=== PATIENT | female | born 1990 | race Caucasian/White ===

== ENCOUNTER 2019-06-16 19:20 | Emergency (ER) | payer OTHER ==
[~2019-06-16] VITALS: Ht 167.6 cm; Wt 86.2 kg
[2019-06-16 19:32] VITALS: BP_SYST 157
--- NOTE | 2019-06-16 19:32 | NUR ---
Placed in room 3 . Placed on eye care professional, blood pressure machine and pulse oximeter. To gown for exam. Side rails up. Report given to KERLINE AKHTAR/ ISMAEL AKHTAR.
[2019-06-16] MEDS ORDERED: NACL 0.9% 1,000 ML IV ONE (20:30)
--- NOTE | 2019-06-16 20:41 | NUR ---
ER at bedside examining patient.
--- NOTE | 2019-06-16 20:41 | NUR ---
Patient A&O x4 and ambulated to ER bed 3. Patient complains of heart palpitations and chest pain that started "around 1230 today". Patient has prescribed hydroxyzine for anxiety. Patient stated she took hydroxyzine today when her heart palpitations started but it was not effective. Patient states she went to an employee wellness exam this morning at 9am and she "had high blood pressure and a fast heart rate". After the wellness exam, she went to work and began to feel light headed. Patient states she has had chest pain on and off for about two months. Patient denies nausea and vomiting. Will continue to monitor.
--- NOTE | 2019-06-16 20:42 | NUR ---
Lab at bedside drawing blood. Patient tolerated well.
[2019-06-16 20:59] LABS: BASOPHILS # (AUTO) 0.1 K/uL (0.0-0.2); BASOPHILS % (AUTO) 0.8 % (0.0-2.0); EOSINOPHILS # (AUTO) 0.1 K/uL (0.0-0.4); EOSINOPHILS % (AUTO) 1.4 % (0.0-4.0); HEMATOCRIT 44.3 % (36-48); LYMPHOCYTES # (AUTO) 2.8 K/uL (1.0-5.5); LYMPHOCYTES % (AUTO) 26.1 % (20.5-51.5); MEAN CORPUSCULAR HEMOGLOBIN 29 pg (27-31); MEAN CORPUSCULAR HGB CONC 34 % (32-36); MEAN CORPUSCULAR VOLUME 85 fL (79.0-98.0); MONOCYTES # (AUTO) 0.8 K/uL (0.0-1.0); MONOCYTES % (AUTO) 7.6 % (1.7-9.3); NEUTROPHILS # (AUTO) 6.8 K/uL (1.8-7.7); NEUTROPHILS % (AUTO) 64.1 % (40.0-70.0); PLATELET COUNT (AUTO) 420 K/uL (130-430); RED BLOOD CELL COUNT(AUTO) 5.19 MIL/uL (4.2-6.2); RED CELL DISTRIBUTION WIDTH 12.8 % (9.0-15.0); WHITE BLOOD COUNT (AUTO) 10.6 K/uL (4.8-10.8)
--- NOTE | 2019-06-16 21:10 | NUR ---
# 20 gauge angiocath placed to RAC. Use of asceptic technique. Opsite placed over site. Blood return noted. Flushed with 10 cc of normal saline. No evidence of infiltration noted. Patient tolerated well.
[2019-06-16 21:14] LABS: ANION GAP 9 (5-15); CALCIUM 9.8 mg/dL (8.4-11.0); CHLORIDE 102 mmol/L (98-107); CREATININE 0.87 mg/dL (0.55-1.30); GLUCOSE 115 mg/dL (70-99); POTASSIUM 3.9 mmol/L (3.5-5.1); SODIUM SERUM 138 mmol/L (136-145); UREA NITROGEN, BLOOD 13 mg/dL (8-21)
[2019-06-16 21:22] LABS: ALANINE AMINOTRANSFERASE 38 U/L (12-78); ASPARTATE AMINOTRANSFERASE 21 U/L (10-37); TOTAL BILIRUBIN 0.4 mg/dL (0.0-1.0)
[2019-06-16 21:26] LABS: GFR AFRICAN AMERICAN 99 mL/min (>90)
[2019-06-16 23:24] VITALS: BP_SYST 133
--- NOTE | 2019-06-16 23:24 | NUR ---
Patient given written and verbal discharge instructions and verbalizes understanding. ER MD discussed with patient the results and treatment provided. Patient in stable condition. ID arm band removed. IV catheter removed intact and dressing applied, no active bleeding. Opportunity for questions provided and answered.
== END 2019-06-16 23:24 | disposition home or self-care (01) ==
LOC: SED 19:20
DX: F41.0 Panic disorder [episodic paroxysmal anxiety] (principal); R07.89 Other chest pain; R42 Dizziness and giddiness; I10 Essential (primary) hypertension; F41.9 Anxiety disorder, unspecified
CPT/HCPCS: 36415; 71045; 80053; 81025; 84484; 85025; 85379; 93005; 96360; 99285; J7030

== ENCOUNTER 2019-06-22 22:43 | Emergency (ER) | payer OTHER ==
[~2019-06-22] VITALS: Ht 162.6 cm; Wt 108.9 kg
[2019-06-22 22:43] VITALS: BP_SYST 129
--- NOTE | 2019-06-22 22:43 | NUR ---
Placed in room 05 . Placed on equipment monitor phototypesetting, blood pressure machine and pulse oximeter. To gown for exam. Side rails up. Report given to Horace AKHTAR.
--- NOTE | 2019-06-22 22:43 | NUR ---
Pt brought in by family members. Pt awake, alert, oriented x4. pt states that she was woken up at approx 4 am due to acute onset of substernal chest pain. Pt states that she was recently at [facility] for similar episode and was diagnosed with an anxiety/panic attack. Pt states that she felt better after last visit for a few days before new symptoms onset. Pt states that she now has nausea, vomiting after eating heavy meals, decreased appetite. Pt denies shortness of breath, dizziness, blurred vision, any other medical complaint at this time. Pt resting in ed bed comfortably with family bedside. VSS
--- NOTE | 2019-06-22 22:45 | NUR ---
ER at bedside examining patient.
[2019-06-22 23:45] LABS: BILIRUBIN,URINE NEGATIVE (NEGATIVE); BLOOD, URINE 1+ (NEGATIVE); CLARITY/URINE CLEAR (CLEAR); COLOR,URINE YELLOW (YELLOW); GLUCOSE,URINE NEGATIVE (NEGATIVE); KETONES,URINE NEGATIVE (NEGATIVE); LEUKOCYTE ESTERASE ,URINE NEGATIVE (NEGATIVE); NITRITE, URINE NEGATIVE (NEGATIVE); PH,URINE 6.5 (5.0-8.0); PROTEIN URINE NEGATIVE (NEGATIVE); UROBILINOGEN,URINE 0.2 (0.2-1.0)
[2019-06-22] MEDS ORDERED: ASPIRIN 81 MG TAB.CHEW PO ONE (23:45)
[2019-06-22 23:49] LABS: BASOPHILS # (AUTO) 0.1 K/uL (0.0-0.2); BASOPHILS % (AUTO) 0.6 % (0.0-2.0); EOSINOPHILS # (AUTO) 0.1 K/uL (0.0-0.4); EOSINOPHILS % (AUTO) 1.3 % (0.0-4.0); HEMATOCRIT 44.3 % (36-48); HEMOGLOBIN 14.9 g/dL (12.0-16.0); LYMPHOCYTES # (AUTO) 3.3 K/uL (1.0-5.5); LYMPHOCYTES % (AUTO) 28.6 % (20.5-51.5); MEAN CORPUSCULAR HEMOGLOBIN 29 pg (27-31); MEAN CORPUSCULAR HGB CONC 34 % (32-36); MEAN CORPUSCULAR VOLUME 85 fL (79.0-98.0); MONOCYTES # (AUTO) 0.7 K/uL (0.0-1.0); MONOCYTES % (AUTO) 6.3 % (1.7-9.3); NEUTROPHILS # (AUTO) 7.3 K/uL (1.8-7.7); NEUTROPHILS % (AUTO) 63.2 % (40.0-70.0); PLATELET COUNT (AUTO) 407 K/uL (130-430); RED BLOOD CELL COUNT(AUTO) 5.21 MIL/uL (4.2-6.2); RED CELL DISTRIBUTION WIDTH 12.3 % (9.0-15.0); WHITE BLOOD COUNT (AUTO) 11.6 K/uL (4.8-10.8)
[2019-06-22 23:55] LABS: BARBITURATE, URINE NEGATIVE (NEG <=200); BENZODIAZEPINE, URINE NEGATIVE (NEG <=150); CANNABINOID, URINE NEGATIVE (NEG <=50); COCAINE, URINE NEGATIVE (NEG <=150); METHAMPHETAMINES SCREEN,URINE NEGATIVE (NEG <=500); OPIATE, URINE NEGATIVE (NEG <=100); PHENCYCLIDINE SCREEN,URINE NEGATIVE (NEG <=25); UR TRICYCLIC ANTIDEPRESSANTS NEGATIVE (NEG <=300); URINE AMPHETAMINE NEGATIVE (NEG <=500); URINE METHADONE NEGATIVE (NEG <=200); URINE OXYCODONE SCREEN NEGATIVE (NEG <=100); URINE PROPOXYPHENE SCREEN NEGATIVE (NEG <=300)
[2019-06-22 23:56] LABS: BACTERIA,URINE MODERATE /HPF (None Seen)
[2019-06-23] LABS: ANION GAP 12 (5-15); CALCIUM 9.7 mg/dL (8.4-11.0); CHLORIDE 101 mmol/L (98-107); CREATININE 0.83 mg/dL (0.55-1.30); GLUCOSE 115 mg/dL (70-99); POTASSIUM 3.4 mmol/L (3.5-5.1); SODIUM SERUM 138 mmol/L (136-145); UREA NITROGEN, BLOOD 10 mg/dL (8-21)
[2019-06-23 00:01] LABS: GFR AFRICAN AMERICAN 105 mL/min (>90)
[2019-06-23 00:02] LABS: PROTHROMBIN TIME 10.2 SECS (9.5-12.5)
[2019-06-23 00:08] LABS: ALANINE AMINOTRANSFERASE 62 U/L (12-78); ALBUMIN 4.1 g/dL (3.4-4.8); ASPARTATE AMINOTRANSFERASE 27 U/L (10-37); TOTAL BILIRUBIN 0.3 mg/dL (0.0-1.0)
--- NOTE | 2019-06-23 00:23 | NUR ---
Pt resting in ED bed comfortably. No acute distress.
[2019-06-23] MEDS ORDERED: MAG HYDROX/AL HYDROX/SIMETH 30 ML, LIDOCAINE VISCOUS 2% 15ML (PO) 10 ML, DICYCLOMINE HC... PO ONE ×3 (01:15)
--- NOTE | 2019-06-23 01:30 | NUR ---
Pt states relief from pain and discomfort. Pt states "I feel coolness and relief, im ready to go home"
[2019-06-23 02:35] VITALS: BP_SYST 121
--- NOTE | 2019-06-23 02:35 | NUR ---
Patient given written and verbal discharge instructions and verbalizes understanding. ER MD discussed with patient the results and treatment provided. Patient in stable condition. ID arm band removed. IV catheter removed intact and dressing applied, no active bleeding. Rx of Protonix given. Patient educated on pain management and to follow up with PMD. Pain Scale 0/10. Opportunity for questions provided and answered. Medication side effect fact sheet provided.
[2019-06-23] MEDS ORDERED: PANT40TA4 PO (18:21)
[2019-06-23] MEDS ORDERED: FAMO40TA7 PO (18:21)
== END 2019-06-23 02:35 | disposition home or self-care (01) ==
LOC: SED 22:43
DX: K21.9 Gastro-esophageal reflux disease without esophagitis (principal); R07.9 Chest pain, unspecified; Z88.0 Allergy status to penicillin
CPT/HCPCS: 36415; 71045; 80053; 80307; 81000; 81025; 82550; 83880; 84484; 85025; 85379; 85610; 87086; 93005; 99285; J2001

== ENCOUNTER 2019-06-23 15:12 | Emergency (ER) | payer OTHER ==
[~2019-06-23] VITALS: Ht 167.6 cm; Wt 90.3 kg
[2019-06-23 15:15] VITALS: BP_SYST 142
[2019-06-23] MEDS ORDERED: DICYCLOMINE HCL 10 MG/5 ML SOLUTION PO ONE (15:30)
[2019-06-23] MEDS ORDERED: PANTOPRAZOLE SODIUM 40 MG/VIAL (PROTONIX) IVP ONE (15:30)
[2019-06-23] MEDS ORDERED: KETOROLAC TROMETHAMINE 30 MG VIAL IVP ONE (15:30)
[2019-06-23] MEDS ORDERED: MAG-AL HYDROX/SIMETH 30 ML UDC PO ONE (15:30)
[2019-06-23] MEDS ORDERED: LIDOCAINE VISCOUS 2%, 15 ML UDC MM ONE (15:30)
[2019-06-23] MEDS ORDERED: LORazepam 2 MG/ML VIAL IVP ONE (15:30)
[2019-06-23] MEDS ORDERED: NACL 0.9% 1,000 ML IV ONE (15:30)
[2019-06-23 15:58] LABS: BASOPHILS # (AUTO) 0.1 K/uL (0.0-0.2); BASOPHILS % (AUTO) 0.7 % (0.0-2.0); EOSINOPHILS % (AUTO) 0.1 % (0.0-4.0); HEMATOCRIT 43.9 % (36-48); LYMPHOCYTES # (AUTO) 2.6 K/uL (1.0-5.5); LYMPHOCYTES % (AUTO) 21.4 % (20.5-51.5); MEAN CORPUSCULAR HEMOGLOBIN 29 pg (27-31); MEAN CORPUSCULAR HGB CONC 34 % (32-36); MEAN CORPUSCULAR VOLUME 85 fL (79.0-98.0); MONOCYTES # (AUTO) 0.8 K/uL (0.0-1.0); MONOCYTES % (AUTO) 6.8 % (1.7-9.3); NEUTROPHILS # (AUTO) 8.5 K/uL (1.8-7.7); PLATELET COUNT (AUTO) 424 K/uL (130-430); RED BLOOD CELL COUNT(AUTO) 5.19 MIL/uL (4.2-6.2); RED CELL DISTRIBUTION WIDTH 12.4 % (9.0-15.0)
[2019-06-23 16:48] LABS: CALCIUM 10.1 mg/dL (8.4-11.0); CREATININE 0.85 mg/dL (0.55-1.30); POTASSIUM 3.6 mmol/L (3.5-5.1)
[2019-06-23 16:53] LABS: ALBUMIN 4.4 g/dL (3.4-4.8); TOTAL BILIRUBIN 0.6 mg/dL (0.0-1.0)
[2019-06-23 17:41] LABS: FREE T4 (FREE THYROXINE) 1.5 ng/dl (0.8-1.5); THYROID STIMULATING HORMONE 1.92 uIu/mL (0.36-3.74)
[2019-06-23 18:10] VITALS: BP_SYST 150
[2019-06-23] MEDS ORDERED: PANT40TA4 PO (18:21)
[2019-06-23] MEDS ORDERED: FAMO40TA7 PO (18:21)
== END 2019-06-23 18:25 | disposition home or self-care (01) ==
LOC: SED 15:12
DX: R07.89 Other chest pain (principal); F41.9 Anxiety disorder, unspecified; Z88.0 Allergy status to penicillin; Z79.899 Other long term (current) drug therapy
CPT/HCPCS: 36415; 71045; 80053; 84439; 84443; 85025; 85379; 93005; 96374; 96375; 99285; C9113; J1885; J2001; J2060; J7030